=== PATIENT | female | born 1960 | race Caucasian/White ===

== ENCOUNTER 2016-06-23 09:14 | Emergency (ER) | payer BC ==
--- NOTE | 2016-06-23 09:34 | Emergency Department Record ---
History of Present Illness - General Chief Complaint: Chest Pain Stated Complaint: CHEST PAIN Time Seen by Provider: 06/23/16 09:33 Source: Patient Mode of Arrival: Ambulatory Limitations: No limitations - History of Present Illness Initial Comments: The patient is here due to a 6 hour hx of chest discomfort. It started after bending over when she was lifting her grandson off the floor. She then developed NEFTALI with the discomfort. The pain at that time was a retrosternal heaviness. It did slowly improve over the next few hours but then the NEFTALI returned about an hour prior to presenting to the ED. She has had mild sweating with it. Presently she describes the discomfort as a 1/10 heartburn feeling. There is no NEFTALI, sweating or nausea presently. She has no hx of cardiac issues and her only risk factor is family hx. Onset/Timin -: Hour(s) Onset: During exertion, Other Pain Location: Substernal Pain Radiation: Other Severity: Mild Severity scale (1-10): 2 Quality: Heaviness Consistency: Constant Improves With: Nothing Worsens With: Exertion Treatments Prior to Arrival: None - Related Data Home Medications Medication Instructions Recorded Confirmed Last Taken Cholecalciferol (Vitamin D3) 2,000 unit PO DAILY 06/23/16 06/23/16 Unknown [Vitamin D3] Multivitamin [Multi-Vitamin Daily] 1 each PO DAILY 06/23/16 06/23/16 Unknown Allergies Allergy/AdvReac Type Severity Reaction Status Date / Time No Known Drug Allergies Allergy Verified 07/17/15 09:57 Travel Screening - Travel/Exposure Within Last 30 Days Have you traveled within the last 30 days?: No Review of Systems Constitutional: Denies: Chills, Fever Eyes: Denies: Eye discharge ENT: Denies: Congestion Respiratory: Denies: Cough, Dyspnea Cardiovascular: Reports: Chest pain Endocrine: Denies: Fatigue Gastrointestinal: Denies: Diarrhea, Vomiting Genitourinary: Denies: Dysuria Musculoskeletal: Reports: Back pain (chronic.) Skin: Denies: Bruising Past Medical History - SOCIAL HISTORY Smoking Status: Never smoker Alcohol Use: Rare Drug Use: None - RESPIRATORY Hx Respiratory Disorders: No - CARDIOVASCULAR Hx Cardio Disorders: No - NEURO Hx Neuro Disorders: Yes Hx of Migraines: Yes (related to food allergies) - GI Hx GI Disorders: Yes Hx Diverticulitis: Yes (perforated) Comment:: Colon ruptured - Hx Genitourinary Disorders: No - ENDOCRINE Hx Endocrine Disorders: No - MUSCULOSKELETAL Hx Musculoskeletal Disorders: Yes Hx Arthritis: Yes Hx Back Injury: Yes (fx l1 2-16) - PSYCH Hx Psych Problems: No - HEMATOLOGY/ONCOLOGY Hx Hematology/Oncology Disorders: No Family Medical History Any Significant Family History?: Yes Hx Heart Disease: Father Physical Exam - General General Appearance: Alert, Oriented x3, Cooperative, No acute distress - Head Head exam: Atraumatic, Normocephalic, Normal inspection - Eye Eye exam: Normal appearance, PERRL - ENT Throat exam: Normal inspection. negative: Tonsillar erythema, Tonsillar exudate - Neck Neck exam: Normal inspection, Full ROM. negative: Tenderness - Respiratory Respiratory exam: Normal lung sounds bilaterally. negative: Respiratory distress - Cardiovascular Cardiovascular Exam: Regular rate, Normal rhythm, Normal heart sounds. negative : Diastolic murmur, Systolic murmur - GI/Abdominal GI/Abdominal exam: Soft, Normal bowel sounds. negative: Tenderness - Extremities Extremities exam: Normal inspection. negative: Pedal edema, Tenderness - Neurological Neurological exam: Alert, Normal gait, Oriented X3. negative: Abnormal gait, Motor sensory deficit - Psychiatric Psychiatric exam: negative: Anxious, Depressed Course Vital Signs 06/23/16 09:20 Temperature 97.3 F L Pulse Rate 99 H Respiratory 18 Rate Blood Pressure 120/71 Pulse Ox 99 - Reevaluation(s) Reevaluation #1: The patient is doing very well at this time. She is resting comfortably and only has a trace of the chest discomfort. I did discuss her test results with her and family. I explained due to the D-dimer being quite elevated we will be ordering a CT to R/O PE. Additionally her CPK and MB were neg but the Trop borderline positive which could indicate a large PE. Due to that fact I did start Heparin prior to going to CT. 06/23/16 10:45 Reevaluation #2: The patient is back from CT and doing well. Her vitals are all WNL and O2 sat 100% on 2 liters of oxygen. 06/23/16 11:25 Reevaluation #3: The patient is doing very well at this time and due to the Trop and CT results I did think she will need a larger hospital. The patient and did state they would like to go to [place]. Because of that I did discuss the case with Dr. Mendoza at [facility] and she accepts the patient to [facility]. 06/23/16 12:24 06/23/16 13:53 Medical Decision Making - Data Complexity MDM Data: Labs Ordered and/or Reviewed, X-Ray Ordered and/or Reviewed, EKG Ordered and/or Reviewed - Lab Data Result diagrams: 06/23/16 09:20 06/23/16 09:20 - EKG Data -: EKG Interpreted by Me EKG: No Acute Changes - Radiology Data Radiology results: Report reviewed (CXR: WNL Chest CT: Multiple bilateral PE 's greatest in the LLL.) Disposition Disposition: Transfer Clinical Impression: Bilateral pulmonary embolism Disposition: Acute Care Hospital Transfer Transfer To: [facility] Reason For Transfer: Large PE's Accepting Physician: Kelly Time Discussed w/Accepting Physician: 12:25 Condition: (2) Stable Forms: Patient Portal Access Time of Disposition: 12:25
[2016-06-23] MEDS ORDERED: ASPIRIN 325 MG TABLET PO ONE (09:40)
[2016-06-23] MEDS ORDERED: SUCRALFATE 1 G/10 ML UD PO ONE (09:41)
[2016-06-23] MEDS ORDERED: 0.9 % SODIUM CHLORIDE 1,000 ML BAG IV ONE (09:41)
[2016-06-23 09:48] LABS: HEMATOCRIT 49.8 % (35.0-47.0); HEMOGLOBIN 15.9 gm/dl (11.6-16.0); MEAN CORPUSCULAR HEMOGLOBIN 26.5 pg (27-33); MEAN CORPUSCULAR HGB CONC 31.9 g/dl (32-36); PLATELET COUNT 675 K/uL (130-400); RED CELL DISTRIBUTION WIDTH 15.6 % (11.5-14.5); WHITE BLOOD COUNT W/O DIFF 13.2 K/uL (4.2-12.2)
[2016-06-23 09:58] LABS: PLATELET ESTIMATE INCREASED (NORMAL)
[2016-06-23 10:01] LABS: ANION GAP 18.5 (7-16); BLOOD UREA NITROGEN 16 mg/dL (7-17); CARBON DIOXIDE 24.5 mmol/L (22-30); CREATINE PHOSPHOKINASE 28 U/L (30-135); CREATININE 0.8 mg/dL (0.52-1.04); EST GLOMERULAR FILTRATION RATE > 60 ml/min; GLUCOSE,RANDOM 151 mg/dL (70-110)
[2016-06-23 10:03] LABS: D-DIMER 2.49 mg/L FEU (0-0.59); INR 1.01; PARTIAL THROMBOPLASTIN TIME 30.5 SECONDS (24.5-39.1); PROTHROMBIN TIME (PATIENT) 11.4 SECONDS (9.5-12.1)
[2016-06-23 10:13] LABS: CKMB 3.2 ug/L (0-6)
[2016-06-23] MEDS ORDERED: HEPARIN SODIUM 1000 UNIT/1 ML 10ML VIAL IVP ONE (10:36)
[2016-06-23] MEDS ORDERED: HEPARIN SODIUM/D5W 25,000 UNITS in DEXTROSE 5 % IN WATER 1 BAG IV SCH ×2 (10:45)
[2016-06-23] MEDS ORDERED: MORPHINE SULFATE 5 MG/ML PFS IVP ONE (11:26)
[2016-06-23] MEDS ORDERED: ONDANSETRON HCL IV 4 MG/2 ML VIAL IVP ONE (11:26)
--- NOTE | 2016-06-26 12:11 | RADIOLOGY REPORT ---
DATE: 06/23/2016. EXAM: CHEST. HISTORY: Sudden onset of difficulty breathing and chest pain at 4:00 a.m. TECHNIQUE: Chest x-ray, single-view. COMPARISON: 04/26/2015. FINDINGS: The heart is not enlarged. No mediastinal mass. No acute infiltrate or vascular congestion. IMPRESSION: UNREMARKABLE CHEST. JOB NUMBER: [id number] MTDD
--- NOTE | 2016-06-26 12:37 | CT ANGIOGRAM REPORT ---
DATE: 06/23/2016. EXAM: CT ANGIOGRAPHY OF THE THORAX. HISTORY: Sudden onset of difficulty breathing and chest pain at 4:00 a.m. TECHNIQUE: CT angiography of the thorax is performed following intravenous contrast administration. A total of 80 mL Omnipaque 350 contrast are used for this examination. Coronal and sagittal post-process MIP images are performed on an independent work station as part of this examination. COMPARISON: CT of the abdomen and pelvis dated 09/15/2009. FINDINGS: There are bilateral acute pulmonary emboli. Findings involve both upper lobes and both lower lobes. A small to moderate amount of clot is present with clot most prominently seen in the left lower lobe pulmonary artery branches. No large central emboli are seen. No lung consolidation. No lung mass or lung nodule. No mediastinal or hilar mass or adenopathy. No aortic aneurysm or aortic dissection. Great vessel origins are unremarkable. Limited upper abdominal images demonstrate a large, low-density lesion in the right lobe of the liver measuring 4.0 x 4.8 cm in size. This is larger than on the previous study, most likely representing a cyst. This, however, is not optimally assessed on this chest CT. A few other hypodense lesions are also present in the liver, presumably representing cysts. CT of the abdomen could be performed for their further assessment. Upper abdomen is otherwise unremarkable. IMPRESSION: 1. THERE ARE BILATERAL PULMONARY EMBOLI. THE REPORT OF THESE FINDINGS CALLED TO DR. REIS IN THE EMERGENCY ROOM AT ABOUT 11:35 A.M. ON 06/23/2016. 2. NO OTHER ACUTE THORACIC PROCESS IDENTIFIED. 3. LOW-DENSITY LIVER LESIONS ARE PRESENT WHICH PROBABLY REPRESENT CYSTS. A CT OF THE ABDOMEN COULD BE PERFORMED FOR THEIR FURTHER ASSESSMENT. JOB NUMBER: [id number] MTDD
== END 2016-06-23 13:52 | disposition short-term general hospital (02) ==
LOC: ER 09:14
DX: I26.99 Other pulmonary embolism without acute cor pulmonale (principal); R06.00 Dyspnea, unspecified; R07.89 Other chest pain
CPT/HCPCS: 99285 ×2; 96365; 96366; 96375; 82550; 85730; 85610; 82553; 84484; 80048; 85379; 85027; 71010; 71275; 93005; 93010; Q9967; J2405; J2270; J7030